=== PATIENT | female | born 1990 | race Hispanic/Latino ===

== ENCOUNTER 2024-07-21 08:29 | Emergency (ER) | payer OTHER, SELFPAY ==
[2024-07-21] MEDS ORDERED: Dexamethasone 4 MG TAB ONE (09:22)
[2024-07-21] MEDS ORDERED: Azithromycin 250 MG TAB ONE (09:23)
== END 2024-07-21 09:50 | disposition home or self-care (01) ==
LOC: CSHERS 08:29
DX: J18.9 Pneumonia, unspecified organism (principal); Z55.6 Problems related to health literacy; Z87.891 Personal history of nicotine dependence
CPT/HCPCS: J8540

== ENCOUNTER 2024-07-31 01:00 | Emergency (ER) | payer SELFPAY | END 2024-07-31 01:30 | disposition home or self-care (01) | LOC: CSHERS 01:00 | DX: R05.9 Cough, unspecified (principal); Z87.891 Personal history of nicotine dependence | CPT/HCPCS: 99283 ==